=== PATIENT | male | born 1960 | race Caucasian/White ===

== ENCOUNTER 2019-09-19 06:52 | Inpatient (IN) | payer BC ==
[~2019-09-19] VITALS: Ht 182.9 cm; Wt 125.8 kg
[2019-09-19] MEDS ORDERED: DIPHENHYDRAMINE HCL INJ 50 MG/ML VIAL ONE (07:05)
[2019-09-19] MEDS ORDERED: FAMOTIDINE 20 MG/2 ML VIAL IV ONE (07:05)
[2019-09-19] MEDS ORDERED: METHYLPREDNISOLONE SOD SUCC 125 MG/2ML VIAL ONE (07:06)
[2019-09-19] MEDS ORDERED: SODIUM CHLORIDE 0.9% 500ML 500 ML ONE (07:08)
[2019-09-19] MEDS ORDERED: FAMOTIDINE 20 MG/2 ML VIAL IV STA (07:14)
[2019-09-19] MEDS ORDERED: METHYLPREDNISOLONE SOD SUCC 125 MG/2ML VIAL IV ONE (07:15)
[2019-09-19] MEDS ORDERED: SODIUM CHLORIDE 0.9% 500ML 500 ML IV ONE (07:15)
[2019-09-19] MEDS ORDERED: DIPHENHYDRAMINE HCL INJ 50 MG/ML VIAL IV ONE (07:15)
[2019-09-19 07:55] LABS: BASOPHILS % 0.1 % (0.0-1.0); EOSINOPHILS # (AUTO) 0.2 (0.0-0.4); HEMOGLOBIN 14.9 g/dL (14.0-18.0); LYMPHOCYTES # (AUTO) 2.1 (1.0-3.2); LYMPHOCYTES % 17.1 % (18.0-39.1); MEAN CORPUSCULAR HEMOGLOBIN 30.6 pg (28-32); MEAN CORPUSCULAR HGB CONC 33.9 g/dL (31-35); MEAN CORPUSCULAR VOLUME 90.3 fL (81-99); MONOCYTES # (AUTO) 0.7 (0.2-0.8); NEUTROPHILS # (AUTO) 9.1 (2.1-6.9); NEUTROPHILS % 74.5 % (38.7-80.0); PLATELET COUNT 247 x10e3/uL (140-360); RED BLOOD COUNT 4.87 x10e6/uL (4.3-5.7)
[2019-09-19 08:07] LABS: INR 0.92; PROTHROMBIN TIME 12.9 seconds (11.9-14.5)
[2019-09-19 08:08] LABS: PARTIAL THROMBOPLASTIN TIME 29.9 seconds (23.8-35.5)
[2019-09-19 08:14] LABS: ALANINE AMINOTRANSFERASE 43 IU/L (0-55); ALBUMIN 4.3 g/dL (3.5-5.0); ALBUMIN/GLOBULIN RATIO 1.3 (0.8-2.0); ALKALINE PHOSPHATASE 88 IU/L (40-150); ANION GAP 16.2 mmol/L (8-16); BLOOD UREA NITROGEN 13 mg/dL (7-26); BUN/CREATININE RATIO 14 (6-25); CALCIUM 9.7 mg/dL (8.4-10.2); CARBON DIOXIDE 23 mmol/L (22-29); CHLORIDE 103 mmol/L (98-107); CREATININE, SERUM 0.91 mg/dL (0.72-1.25); EST GLOMERULAR FILTRATION RATE > 60 ML/MIN (60-); GLUCOSE 105 mg/dL (74-118); POTASSIUM 4.2 mmol/L (3.5-5.1); SODIUM 138 mmol/L (136-145)
[2019-09-19] MEDS ORDERED: DIPHENHYDRAMINE HCL INJ 50 MG/ML VIAL IV PRN (08:30)
--- NOTE | 2019-09-19 08:33 | NUR ---
DR. MCPHERSON AT BEDSIDE UPDATING PATIENT ON PLAN OF CARE
[2019-09-19] MEDS ORDERED: SODIUM CHLORIDE 0.9% 1000ML 1,000 ML IV ONE (08:45)
[2019-09-19] MEDS ORDERED: ONDANSETRON HCL INJ 2MG/ML 2ML 2 MG/ML VIAL IV PRN (08:45)
[2019-09-19] MEDS ORDERED: [UNRECOGNIZED DRUG - OTHER] TOP (08:55)
[2019-09-19] MEDS ORDERED: SEYSARA150 MG PO (08:55)
[2019-09-19] MEDS ORDERED: FLUOROURACIL40 GM TOP (08:55)
[2019-09-19] MEDS ORDERED: DOXYCYCLINE HY100 MG PO (08:55)
[2019-09-19] MEDS ORDERED: [UNRECOGNIZED DRUG - OTHER] TOP (08:56)
[2019-09-19] MEDS: FAMOTIDINE 20 MG/2 ML VIAL IV SCH ×2 (09:12→17:45)
[2019-09-19] MEDS: PIPER-TAZ 3.375 GM 50 ML IV SCH ×4 (09:20→23:58)
--- NOTE | 2019-09-19 09:30 | NUR ---
Received patient from ER, a/ox3, ambulatory, no resp distress, atopic dermatitis and facial cellulitis requiring IV abx treatment, no resp distress, denies any pains, call light within reach, will monitor.
[2019-09-19 09:52] VITALS: BP 136/71
[2019-09-19 10:00] VITALS: BP 136/71
[2019-09-19] MEDS: VANCOMYCIN 1GM/NS 250 ML 250 ML IV SCH ×2 (10:00→20:50)
[2019-09-19 11:36] VITALS: BP 139/73
--- NOTE | 2019-09-19 16:08 | NUR ---
Patient stable, creams applied to atopic dermatitis regions, back and arms, no resp distress, tolerated all abx, no reaction noted, OOB and ambulating, will monitor.
[2019-09-19 16:11] VITALS: BP 148/86
[2019-09-19] MEDS ORDERED: [UNRECOGNIZED DRUG - MIXTURE] TOP SCH (17:00)
[2019-09-19] MEDS ORDERED: MINERAL OIL/PETROLAT/GLYCERI 6OZ BTL TOP SCH (17:00)
[2019-09-19 19:11] VITALS: BP 117/56
--- NOTE | 2019-09-19 19:11 | NUR ---
PT IS RESTING IN BED. RESPIRATION IS EVEN AND UNLABORED, NO DISTRESS NOTED. BED IN THE LOWEST POSITION, LOCKED, AND CALL LIGHT WITHIN REACH. WILL CONTINUE TO MONITOR.
[2019-09-19 20:22] VITALS: BP 117/56
[2019-09-20 00:52] VITALS: BP 120/62
[2019-09-20 05:05] VITALS: BP 119/58
[2019-09-20] MEDS: PIPER-TAZ 3.375 GM 50 ML IV SCH (05:19)
[2019-09-20 06:11] LABS: BASOPHILS % 0.1 % (0.0-1.0); HEMATOCRIT 38.5 % (38.2-49.6); LYMPHOCYTES # (AUTO) 1.4 (1.0-3.2); LYMPHOCYTES % 12.9 % (18.0-39.1); MEAN CORPUSCULAR HGB CONC 33.8 g/dL (31-35); MEAN CORPUSCULAR VOLUME 91.7 fL (81-99); MONOCYTES # (AUTO) 0.7 (0.2-0.8); MONOCYTES % 5.9 % (4.4-11.3); NEUTROPHILS % 80.6 % (38.7-80.0); PLATELET COUNT 232 x10e3/uL (140-360); RED CELL DISTRIBUTION WIDTH 13.1 % (11.7-14.4)
[2019-09-20 06:35] LABS: ALANINE AMINOTRANSFERASE 32 IU/L (0-55); ALBUMIN 3.6 g/dL (3.5-5.0); ALBUMIN/GLOBULIN RATIO 1.3 (0.8-2.0); ALKALINE PHOSPHATASE 68 IU/L (40-150); ANION GAP 12.8 mmol/L (8-16); BLOOD UREA NITROGEN 16 mg/dL (7-26); BUN/CREATININE RATIO 20 (6-25); CALCIUM 8.7 mg/dL (8.4-10.2); CARBON DIOXIDE 24 mmol/L (22-29); CHLORIDE 106 mmol/L (98-107); CREATININE, SERUM 0.81 mg/dL (0.72-1.25); EST GLOMERULAR FILTRATION RATE > 60 ML/MIN (60-); GLUCOSE 136 mg/dL (74-118); POTASSIUM 3.8 mmol/L (3.5-5.1); SODIUM 139 mmol/L (136-145)
[2019-09-20 07:47] VITALS: BP 129/67
[2019-09-20 08:00] VITALS: BP 129/67
[2019-09-20] MEDS: FAMOTIDINE 20 MG/2 ML VIAL IV SCH (08:54)
[2019-09-20] MEDS: VANCOMYCIN 1GM/NS 250 ML 250 ML IV SCH (08:56)
[2019-09-20 11:27] VITALS: BP 135/71
[2019-09-20] MEDS ORDERED: DOXYCYCLINE HY100 MG PO (11:37)
[2019-09-20] MEDS ORDERED: medrol (11:37)
--- NOTE | 2019-09-20 12:15 | NUR ---
Pt discharged with all personal belongings. Denies any pain at this time. Pt verbalized understanding of all discharge instructions. 0 s/s of acute distress noted.
== END 2019-09-20 12:16 | disposition home or self-care (01) | DRG 603 ==
LOC: ER 06:52 → ERHOLD 08:56 → MED/SURG3 09:28
DX: L03.211 Cellulitis of face (principal); L27.1 Localized skin eruption due to drugs and medicaments taken internally; Z85.820 Personal history of malignant melanoma of skin; L70.9 Acne, unspecified
CPT/HCPCS: 36415; 80053; 80202; 85025; 85610; 85730; 87040; 99284; J1200; J2543; J2930; J3301; J3370; J7030; J7040